=== PATIENT | female | born 1945 | race Caucasian/White ===

== ENCOUNTER 2018-06-08 06:48 | Emergency (ER) | payer OTHER ==
[~2018-06-08] VITALS: Ht 154.9 cm; Wt 72.7 kg
[~2018-06-08 06:48] MED LIST: ADULT LOW DOSE81 M1 PO; ALEVE220 M2 PO; ALLEGRA180 MG PO; ASPIR-TRIN325 M1 PO; CHLORZOXAZONE500 MG PO; FENOFIBRATE160 M1 PO; FEXOFENADINE PO; LEXAPRO10 MG PO; LISINOPRIL-HCT1 EACH PO; METOPROLOL SUCC25 MG PO; NASONEX17 GM BOTH NARES; NASONEX17 GM NS; PERCOCET 5/31 TABLET PO; PRILOSEC20 MG PO; PRINZIDE 20-121 EACH PO; SIMVASTATIN20 M1 PO; SIMVASTATIN20 MG PO; VITAMIN D1000 INTUN PO; VITAMIN D1000 UNIT PO; ZOFRAN4 MG PO; Zestoretic,Prinzide PO; [UNRECOGNIZED DRUG - OTHER] PO
[2018-06-08 07:33] LABS: HEMATOCRIT 42.7 % (36.0-46.0); HEMOGLOBIN 14.7 G/DL (11.9-15.5); MCH 31.1 PG (29.0-34.0); MCHC 34.4 G/DL (30.0-36.0); MCV 90.3 FL (83-99); PLATELET COUNT 227 K/uL (156-360); RBC DIS.WIDTH-CV 12.6 % (11.8-14.6); RBC DIS.WIDTH-SD 41.5 % (39-53); RED BLOOD COUNT 4.73 M/uL (3.80-5.20); WHITE BLOOD COUNT 7.3 K/uL (4.1-10.2)
[2018-06-08 08:00] LABS: CHLORIDE 104 MEQ/L (99-109); CREATININE 0.8 MG/DL (0.6-1.3); GFR ESTIMATE (CALCULATED) > 59 mL/min/; GLUCOSE 99 mg/dL (70-99); POTASSIUM 3.9 MEQ/L (3.7-5.4); SODIUM 140 MEQ/L (136-147); UREA NITROGEN (BUN) 17 mg/dL (9-23)
[2018-06-08 08:29] LABS: APPEARANCE CLEAR ((CLEAR)); BILIRUBIN NEGATIVE; BLOOD NEGATIVE; COLOR COLORLESS ((YELLOW)); GLUCOSE (STRIP) NEGATIVE; KETONES NEGATIVE; LEUKOCYTES SMALL; NITRITE NEGATIVE; PROTEIN (STRIP) NEGATIVE; SPECIFIC GRAVITY 1.003 (1.000-1.030); UROBILINOGEN 0.2 MG/DL (0.2-1.0)
[2018-06-08 08:31] LABS: BACTERIA RARE /HPF; EPITHELIAL CELLS RARE /HPF; MUCUS NONE SEEN /LPF; RED BLOOD CELLS 0-5 /HPF (0-5); UCUL ADDED? NO; WHITE BLOOD CELLS 0-5 /HPF (0-5)
[2018-06-08] MEDS ORDERED: ANTIVERT25 MG PO (10:50)
[2018-06-08 11:01] VITALS: BP 137/97
== END 2018-06-08 11:02 | disposition home or self-care (01) ==
LOC: EME 06:48
PROVIDERS: Physician Assistant
DX: R42 Dizziness and giddiness (principal); I10 Essential (primary) hypertension; F32.9 Major depressive disorder, single episode, unspecified; E78.5 Hyperlipidemia, unspecified; F41.9 Anxiety disorder, unspecified; Z87.891 Personal history of nicotine dependence; Z88.5 Allergy status to narcotic agent
CPT/HCPCS: 70450; 80048; 81003; 85027; 99281; 99285